=== PATIENT | female | born 1995 | race Native Hawaiian/Other Pacific Islander ===

== ENCOUNTER 2019-05-07 11:38 | Emergency (ER) | payer MEDICAID, OTHER ==
[~2019-05-07] VITALS: Ht 152.4 cm; Wt 60.0 kg
[2019-05-07 15:05] VITALS: BP 111/70
== END 2019-05-07 15:58 | disposition home or self-care (01) ==
LOC: EMS 11:49
DX: R45.851 Suicidal ideations (principal); F12.90 Cannabis use, unspecified, uncomplicated

== ENCOUNTER 2021-02-26 12:57 | Emergency (ER) | payer OTHER ==
[~2021-02-26] VITALS: Ht 152.4 cm; Wt 81.8 kg
[2021-02-26] MEDS ORDERED: ACETAMINOPHEN 500 MG TABLET PO ONE (13:45)
[2021-02-26 15:40] VITALS: BP 124/75
[2021-02-26 18:32] LABS: AMPHET/METH SCREEN,URINE POSITIVE (NEGATIVE); BARBITURATE SCREEN, URINE NEGATIVE (NEGATIVE); BENZODIAZEPINES SCREEN,URINE NEGATIVE (NEGATIVE); CANNABINOID SCREEN,URINE POSITIVE (NEGATIVE); COCAINE SCREEN,URINE NEGATIVE (NEGATIVE); METHADONE SCREEN, URINE NEGATIVE (NEGATIVE); OPIATE SCREEN,URINE NEGATIVE (NEGATIVE)
[2021-02-26 18:34] LABS: PHENCYCLIDINE SCREEN,URINE NEGATIVE (NEGATIVE)
== END 2021-02-26 20:46 | disposition home or self-care (01) ==
LOC: EMS 12:57
DX: S52.002A Unspecified fracture of upper end of left ulna, initial encounter for closed fracture (principal); F19.10 Other psychoactive substance abuse, uncomplicated; R45.851 Suicidal ideations; F12.90 Cannabis use, unspecified, uncomplicated; Y35.811A Legal intervention involving manhandling, law enforcement official injured, initial encounter; Y93.89 Activity, other specified; Y92.89 Other specified places as the place of occurrence of the external cause; Y99.8 Other external cause status
CPT/HCPCS: 84703; 99285